=== PATIENT | female | born 1965 | race American Indian/Alaskan Native ===

== ENCOUNTER 2016-12-04 06:51 | Emergency (ER) | payer SELFPAY ==
[2016-12-04 07:07] VITALS: BP 128/76
--- NOTE | 2016-12-04 08:58 | XRay Report ---
RIGHT FINGERS, 3 VIEWS History: Fourth finger pain. Findings: Bone mineralization is normal limits. No evidence for acute osseous injury or or erosive joint pathology. The soft tissues are unremarkable. Impression: No acute abnormality is appreciated.
[2016-12-04] MEDS ORDERED: TORADOL IM ONE (09:17)
--- NOTE | 2016-12-04 09:17 | Emergency Department Report ---
HPI - General Chief Complaint: Shoulder Injury Time Seen by Provider: 12/04/16 07:43 - HPI HPI: 51-year-old female presents today with left shoulder pain and right ring finger locking 2 months. Patient states that she was seen here in September and was prescribed Flexeril and ibuprofen. Patient states that Flexeril does relieve her shoulder pain however she is unable to take the medication due to excessive drowsiness. Patient has been taking ibuprofen without relief. Denies any injury or trauma to the shoulder or finger. Denies numbness, weakness, paresthesias. Describes her pain as 8 out of 10. Denies fever, chills, nausea , vomiting, chest pain, shortness of breath, abdominal pain. ED Past Medical Hx - Past Medical History Previous Medical History?: Yes Additional medical history: Left shoulder, Right hand pain - Surgical History Past Surgical History?: Yes Additional Surgical History: tubal , tonsilectomy, hernia repair - Social History Smoking Status: Current Some Day Smoker Substance Use Type: Non Opiate Pain, Prescribed - Medications Home Medications: Home Medications Medication Instructions Recorded Confirmed Last Taken Type Ibuprofen [Motrin] 800 mg PO Q8HR PRN #21 tablet 02/14/16 12/03/16 Rx Cyclobenzaprine HCl [Flexeril 5 MG 5 mg PO TID #20 tab 12/04/16 Unknown Rx TAB] Naproxen [Naprosyn] 500 mg PO BID #30 tablet 12/04/16 Unknown Rx ED Review of Systems ROS: Stated complaint: LT SHOULDER/RT HAND PAIN Other details as noted in HPI Constitutional: denies: chills, fever, malaise Eyes: denies: eye pain ENT: denies: ear pain, throat pain, congestion Respiratory: denies: cough, shortness of breath, wheezing Cardiovascular: denies: chest pain, palpitations Endocrine: no symptoms reported Gastrointestinal: denies: abdominal pain, nausea, vomiting Musculoskeletal: arthralgia Neurological: denies: headache, weakness Physical Exam - Physical Exam Vital Signs: Vital Signs 12/04/16 07:03 Temperature 98 F Pulse Rate 73 Respiratory 20 Rate Blood Pressure 128/76 O2 Sat by Pulse 100 Oximetry Physical Exam: GENERAL: The patient is well-developed and well-nourished. Patient is in NAD. HEAD: Normocephalic. Atraumatic. CHEST/LUNGS: Clear to auscultation throughout. HEART/CARDIOVASCULAR: Regular rate and rhythm. ABDOMEN: Abdomen is soft, nontender. No guarding or rebound tenderness. RIGHT HAND: Right fourth digits in flexed position at the PIP joint. Able to extend but is painful. No deformity or crepitus noted. Normal sensation. 2 point discrimination intact. Peripheral pulses intact. Capillary refill less than 2 seconds. LEFT SHOULDER: Limited range of motion due to pain. Tenderness to palpation over left trapezius muscle group and shoulder joint. Normal sensation. 2 point discrimination intact. Peripheral pulses intact. Capillary refill less than 2 seconds. NEURO: Alert and oriented x 3. Normal gait. ED Course Vital Signs 12/04/16 07:03 Temperature 98 F Pulse Rate 73 Respiratory 20 Rate Blood Pressure 128/76 O2 Sat by Pulse 100 Oximetry ED Medical Decision Making - Lab Data Vital Signs 12/04/16 07:03 Temperature 98 F Pulse Rate 73 Respiratory 20 Rate Blood Pressure 128/76 O2 Sat by Pulse 100 Oximetry - Radiology Data Radiology results: report reviewed Right fingers: Bone mineralization is normal limits. No evidence for acute osseous injury or loss of joint pathology. The soft tissues are unremarkable. Left shoulder (10/17/16): Routine views demonstrate normal bony and soft tissue structures with normal joint alignment of the shoulder. - Medical Decision Making 51-year-old female presents today with left shoulder pain and right ring finger locking 2 months. Her x-ray results reveal no fracture or dislocation. Patient has been provided with a referral for orthopedic. Patient is in no acute distress at this time. She will be discharged home and is encouraged to follow up with a primary care provider. She will be sent home on Flexeril 5 mg and Naprosyn and is encouraged to return to the emergency room for any worsening symptoms. Critical care attestation.: If time is entered above; I have spent that time in minutes in the direct care of this critically ill patient, excluding procedure time. ED Disposition Clinical Impression: Shoulder pain Qualifiers: Laterality: left Chronicity: acute Qualified Code(s): M25.512 - Pain in left shoulder Trigger finger Qualifiers: Trigger finger location: ring finger Laterality: right Qualified Code(s): M65.341 - Trigger finger, right ring finger Disposition: DISCHARGED TO HOME OR SELFCARE Is pt being admited?: No Does the pt Need Aspirin: No Condition: Stable Instructions: Trigger Finger (ED), Adhesive Capsulitis (ED), Shoulder Sprain ( ED), Dupuytren's Contracture (ED) Additional Instructions: Follow-up with orthopedic. Return to the emergency department if symptoms worsen. Prescriptions: Cyclobenzaprine HCl [Flexeril 5 MG TAB] 5 mg PO TID #20 tab Naproxen [Naprosyn] 500 mg PO BID #30 tablet Referrals: PRIMARY CAREMD [Primary Care Provider] - 3-5 Days GREG MOREAU MD [Staff Physician] - 3-5 Days Forms: Work/School Release Form(ED) Time of Disposition: 09:21
== END 2016-12-04 09:46 | disposition home or self-care (01) ==
LOC: ED 06:51
DX: M25.512 Pain in left shoulder (principal); M65.341 Trigger finger, right ring finger; F17.200 Nicotine dependence, unspecified, uncomplicated
CPT/HCPCS: 73140; 96372; 99283; J1885